=== PATIENT | male | born 2000 | race Two or more races ===

== ENCOUNTER 2022-07-11 22:54 | Emergency (ER) | payer OTHER ==
[~2022-07-11] VITALS: Ht 172.7 cm; Wt 74.4 kg
[~2022-07-11 22:54] MED LIST: NABUMETONE500 MG PO; PERCOCET 5/3251 TAB PO
== END 2022-07-12 00:32 | disposition home or self-care (01) ==
LOC: ER 22:54
DX: S69.91XA Unspecified injury of right wrist, hand and finger(s), initial encounter (principal); W19.XXXA Unspecified fall, initial encounter; Y93.55 Activity, bike riding; Y92.9 Unspecified place or not applicable; Y99.9 Unspecified external cause status; M25.531 Pain in right wrist